=== PATIENT | male | born 1950 | race Caucasian/White ===

== ENCOUNTER 2017-02-20 13:05 | Emergency (ER) | payer MEDICARE ==
[2017-02-20] MEDS ORDERED: LIDOCAINE HCL 1% 20 ML VIAL ONE (13:29)
--- NOTE | 2017-02-20 13:39 | ER PHYSICIAN DOCUMENTATION ---
Physician Documentation [facility] Name:Jose Daniel Howard Age:66 yrs Sex:Male :1950 Arrival Date:02/20/2017 Time:13:05 Bed2 Private MD: Domingo Rueda Disposition: 02/20/17 13:28 Discharged to Home/Self Care. Impression: Dislocation of Finger. - Condition is Good. - Discharge Instructions: DISLOCATED FINGER. - Medical Reconciliation form form. - Follow up: Private Physician; When: As needed; Reason: Continuance of care. - Problem is new. - Symptoms are resolved. HPI: 02/20 13:32 This 66 yrs old Male presents to ER via Private Vehicle with complaints of be Hand Injury - RIGHT. 13:32 The patient or guardian reports deformity, injury, pain. The complaints affect the PIP be of right little finger. Context: The problem [place] park. Onset: The symptom(s)/episode began/occurred suddenly. Compartment Syndrome symptoms: negative. negative for numbness, negative for severe pain, negative for tingling. Historical: - Allergies: No known drug Allergies; - Home Meds: 1. Diltiazem Oral 2. Lisinopril Oral - PMHx: Hypertension; - PSHx: None; - Tetanus: < 10 years. - Ebola Screening: : Patient denies travel to an Ebola-affected area in the 21 days before illness onset. No symptoms or risks identified at this time. . - Immunization history: Flu Vaccine < 1 year. - Social history: Smoking status: Patient states was never smoker of tobacco. ROS: 13:37 MS/extremity: Positive for decreased range of motion, deformity, tenderness. be 13:37 Skin: Positive for abrasion(s), of the right knee and right mcfarland. 13:37 All other systems are negative. Exam: 13:38 Musculoskeletal/extremity: Extremities: grossly normal except: noted in the dorsal be aspect of middle phalanx of right little finger: decreased ROM, deformity, tenderness, consistent with dislocation, noted in the right knee and right mcfarland: abrasion. 13:38 Skin: Turgor: is excellent, dislocation noted right little finger, PIP joint. Vital Signs: 13:12 BP 170 / 95; Pulse 90; Resp 18; Temp 99.0(TE); Pulse Ox 95% on R/A; Weight 86.18 kg; rh Height 6 ft. 0 in. (182.88 cm); Pain 2/10; 13:36 Pain 0/10; lc 13:12 Body Mass Index 25.77 (86.18 kg, 182.88 cm) rh Procedures: 13:30 Reduction: of the PIP of right little finger, using traction, manipulation, flexion, be Immobilized with Piotr tape. Patient tolerated well. Post reduction film - not necessary. MDM: 13:12 Patient medically screened. be 13:30 Differential diagnosis: dislocation, abrasion. Data reviewed: vital signs, nurses be notes, radiologic studies, plain films, and as a result, I will discharge patient, prescribe pain medication, Lidocaine digital block. 02/20 14:50 Order name: HAND; [address] [place] [id number] EDMS Dispensed Medications: 13:16 Drug: Lidocaine (1 %) 10 ml; Route: Infiltration; Site: affected area; lc 13:38 Follow up: Response: Pain is decreased lc Signatures: Kyra Hernández RN RN lc Domingo Mary MD MD be
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
--- NOTE | 2017-02-20 14:06 | RADIOLOGY REPORT ---
Three views of the right hand demonstrate dorsal dislocation of the right fifth proximal interphalangeal joint. No fracture is identified. Joints otherwise appear unremarkable. IMPRESSION: Dorsal dislocation of the right fifth proximal interphalangeal joint. MTDD
== END 2017-02-20 13:39 | disposition home or self-care (01) ==
LOC: ER 13:05
DX: S63.286A Dislocation of proximal interphalangeal joint of right little finger, initial encounter (principal); S80.211A Abrasion, right knee, initial encounter; S80.811A Abrasion, right lower leg, initial encounter; W01.0XXA Fall on same level from slipping, tripping and stumbling without subsequent striking against object, initial encounter; Y92.838 Other recreation area as the place of occurrence of the external cause; Y93.01 Activity, walking, marching and hiking; I10 Essential (primary) hypertension; Z79.899 Other long term (current) drug therapy
CPT/HCPCS: 26700; 73130; 99282; 99284